=== PATIENT | male | born 1970 ===

== ENCOUNTER 2023-09-18 17:25 | Emergency (ER) | payer OTHER ==
[2023-09-18 17:52] VITALS: RESP 18; TEMP 98.5; BMI 55.2
[2023-09-18 19:38] LABS: EOS % 5.8 % (0-4.5); HEMATOCRIT 50.4 % (35.4-49); HEMOGLOBIN 17.9 GM/dL (11.7-16.9); LYMPH % 41.7 % (8-40); MCH 35.9 pg (25.7-33.7); MCHC 35.4 g/dl (32.0-35.9); MEAN CELL VOLUME 101.4 fl (80-96); MEAN PLT VOLUME 6.8 fl (7.5-11.1); MONO % 9.4 % (3.8-10.2); NEUT % 42.1 % (42.8-82.8); PLATELET COUNT 217 10^3/uL (134-434); RBC 4.97 M/mm3 (4.00-5.60); RDW 14.2 % (11.9-15.9); WHITE BLOOD COUNT 5.8 K/mm3 (4.0-10.0)
[2023-09-18] MEDS: MECLIZINE HCL 25 MG TABLET (FP) PO ONE (19:42)
[2023-09-18] MEDS ORDERED: MECLIZINE HCL 25 MG TABLET (FP) ONE (19:42)
[2023-09-18 19:43] LABS: INR 0.98 (0.83-1.09); PROTHROMBIN TIME (PATIENT) 11.3 SEC (9.7-13.0)
[2023-09-18 19:46] LABS: ACTIVATED PTT 30.6 SECONDS (25.2-36.5)
[2023-09-18 19:56] LABS: POTASSIUM 4.1 mmol/L (3.5-5.1)
[2023-09-18 19:59] LABS: ALBUMIN 4.3 g/dl (3.4-5.0); MAGNESIUM 2.2 mg/dL (1.8-2.4)
[2023-09-18 20:02] LABS: CREATININE 1.1 mg/dL (0.55-1.3)
[2023-09-18 20:04] LABS: BILIRUBIN,TOTAL 1.1 mg/dL (0.2-1)
[2023-09-18 21:19] VITALS: BP 142/88; PULSE 88
== END 2023-09-18 21:20 | disposition home or self-care (01) ==
LOC: JER 17:25
DX: F10.10 Alcohol abuse, uncomplicated (principal); R42 Dizziness and giddiness; R74.8 Abnormal levels of other serum enzymes; I10 Essential (primary) hypertension; R11.2 Nausea with vomiting, unspecified; G47.9 Sleep disorder, unspecified; Y90.9 Presence of alcohol in blood, level not specified
CPT/HCPCS: 36415; 71046-TC-FY; 80053; 82550; 83735; 84484; 85025; 85610; 85730; 93005; 93010; 99285-25